=== PATIENT | male | born 2000 | race Two or more races ===

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

== ENCOUNTER 2021-11-07 10:16 | Emergency (ER) | payer MEDICAID ==
[~2021-11-07] VITALS: Ht 167.6 cm; Wt 77.1 kg
[2021-11-07 10:17] VITALS: BP 135/86
== END 2021-11-07 10:48 | disposition home or self-care (01) ==
LOC: ER 10:16
DX: S81.012D Laceration without foreign body, left knee, subsequent encounter (principal); W26.8XXD Contact with other sharp object(s), not elsewhere classified, subsequent encounter